=== PATIENT | male | born 1970 | race Caucasian/White ===

== ENCOUNTER 2018-01-20 18:21 | Outpatient (CLI) | payer OTHER ==
--- NOTE | 2018-01-21 08:54 | XRAY Report ---
BILATERAL HAND X-RAYS: 01/20/2018 HISTORY: Bilateral hand pain. COMPARISON: None. FINDINGS: LEFT HAND: Minimal early degenerative change at the interphalangeal joints of the fingers and thumb. Accessory ossicle adjacent to the ulnar styloid. No evidence of fracture, malalignment, bone erosion, or other abnormality. RIGHT HAND: Minor degenerative change at the interphalangeal joints of the fingers and thumb. No evidence of fracture, malalignment, bone erosion or other abnormality. IMPRESSION: MINOR EARLY DEGENERATIVE CHANGE COMMENSURATE WITH THE PATIENT'S AGE. NO SUPERIMPOSED ACUTE FINDINGS. TD: 01/21/2018 08:53 CHRISTIAN
== END 2018-01-20 18:22 | disposition home or self-care (01) ==
LOC: DI 18:21
PROVIDERS: ATTEND Internal Medicine
DX: M19.042 Primary osteoarthritis, left hand (principal); M19.041 Primary osteoarthritis, right hand